=== PATIENT | male | born 1975 ===

== ENCOUNTER 2023-10-02 19:27 | Emergency (ER) | payer SELFPAY ==
--- NOTE | ~2023-10-02 | XR_ITS ---
EXAMINATION: XR knee RT min 4V DATE: 10/02/2023 20:25 INDICATION: Right knee pain and swelling. TECHNIQUE: 4 views of right knee were obtained. COMPARISON: None. FINDINGS: Bone alignment is normal. No acute fracture. There is shrapnel in distal femur. There is pl ate and screw fixation of distal femur. There is mild tricompartmental osteoarthritis of the knee. Th ere is chondrocalcinosis of the menisci. There is a moderate-sized knee joint effusion with loose bod ies. IMPRESSION: 1. Mild right knee osteoarthritis. 2. Moderate-sized right knee joint effusion with loose bodies. Reviewed, dictated and finalized at location E. [employer]
[2023-10-02 20:05] VITALS: BP 144/87; PULSE 93; RESP 16; TEMP 37.1; O2SAT 100
--- NOTE | 2023-10-02 23:58 | PC.NURSE ---
Pt leaving due to wait. This RN educated pt on s/s that warrant a return to ED. Pt instructed to come back or call EMS if sx worsen.
== END 2023-10-02 23:58 | disposition left against medical advice (07) ==
PROVIDERS: Emergency Provider Emergency Medicine
DX: M25.561 Pain in right knee (principal)
CPT/HCPCS: 73564; 99199